=== PATIENT | male | born 1960 | race Caucasian/White ===

== ENCOUNTER 2022-10-26 03:42 | Emergency (ER) | payer MEDICARE ==
[2022-10-26] MEDS ORDERED: ONDANSETRON 4 MG/2 ML (SDV) Z0FRAN IVP ONE (04:00)
[2022-10-26] MEDS ORDERED: fentaNYL INJECTION 100 MCG/2 ML VIAL IVP ONE ×2 (04:00→05:00)
--- NOTE | 2022-10-26 04:01 | ED Upper Extremity ---
General Chief Complaint: Upper Extremity Stated Complaint: FALL/RT ARM PAIN Source: patient Exam Limitations: no limitations History of Present Illness Date Seen by Provider: Oct 26, 2022 Time Seen by Provider: 03:50 Initial Comments Patient is a 62-year-old male who presents to the emergency room with a chief complaint of right arm pain and shoulder pain. He had been drinking some beer last night he states "5 or 6" for his birthday and was going down his trailer steps when he missed a couple of steps and fell onto his right side. He states he felt and heard a "pop". He states he laid on the ground for about 3 hours before he was able to get a hold of his brother. He states he did not hit his head or have loss of consciousness. He denies any other complaints of injuries to the head neck chest abdomen pelvis or other 3 extremities. He does not recall his last tetanus shot. He did have supper last night. He is not currently nauseous. He denies numbness or weakness to the distal right upper extremity. Onset: this morning (about 3-4 hours [employer]) Pain/Injury Location: right shoulder, right arm Method of Injury: fell Modifying Factors: Improves With Immobilization; Worse With Movement Allergies and Home Medications Allergies Coded Allergies: No Known Drug Allergies (Unverified , 10/26/22) Patient Home Medication List Home Medication List Reviewed: Yes Review of Systems Constitutional: see HPI EENTM: no symptoms reported Cardiovascular: no symptoms reported Gastrointestinal: no symptoms reported Genitourinary: no symptoms reported Musculoskeletal: joint pain (right shoulder and upper arm) Skin: no symptoms reported Psychiatric/Neurological: No Symptoms Reported All Other Systems Reviewed Negative Unless Noted: Yes Physical Exam Vital Signs Vital Signs - First Documented 10/26/22 10/26/22 03:45 05:21 Temp 36.0 Pulse 93 Resp 16 B/P (MAP) 149/102 (118) Pulse Ox 99 O2 Delivery Room Air O2 Flow Rate 2.00 Capillary Refill : Height, Weight, BMI Height: '" Weight: lbs. oz. kg; BMI Method: General Appearance: WD/WN, no apparent distress, obese HEENT: PERRL/EOMI Neck: full range of motion Cardiovascular: regular rate, rhythm Respiratory: lungs clear, normal breath sounds, no respiratory distress, no accessory muscle use Gastrointestinal: non tender, soft Shoulder: limited ROM, pain (prox right humerus - swelling TTP), swelling (right shoulder) Elbow/Forearm: normal inspection, non-tender, no evidence of injury Wrist: Yes normal inspection, Yes non-tender, Yes no evidence of injury, Yes normal ROM Hand: non-tender, normal ROM, Right Neurologic/Tendon: normal sensation, normal motor functions Neurologic/Psychiatric: alert, normal mood/affect, oriented x 3 Skin: normal color, other (abrasions to right hand) Progress/Results/Core Measures Results/Orders My Orders Orders - LAINEY ARRIAZA MD Ondansetron Injection (Zofran Injectio (10/26/22 04:00) Fentanyl Injection (Fentanyl Injection (10/26/22 04:00) Ed Iv/Invasive Line Start (10/26/22 03:57) Humerus, Right, 2 Views (10/26/22 03:57) Shoulder, Right, 3 Views (10/26/22 03:57) Dipht/Pertuss(Acell)/Tet Adult (Dipht/Pe (10/26/22 04:15) Fentanyl Injection (Fentanyl Injection (10/26/22 05:00) O2 (10/26/22 05:20) Medications Given in ED Current Medications Medications Dose Ordered Sig/Frida Route Start Time Stop Time Status Last Admin Dose Admin Diphtheria/ Tetanus/Acell Pertussis 0.5 ml ONCE ONCE IM 10/26/22 04:15 10/26/22 04:16 DC 10/26/22 04:08 0.5 ML Fentanyl Citrate 50 mcg ONCE ONCE IVP 10/26/22 04:00 10/26/22 04:01 DC 10/26/22 04:05 50 MCG Fentanyl Citrate 50 mcg ONCE ONCE IVP 10/26/22 05:00 10/26/22 05:01 DC 10/26/22 05:01 50 MCG Ondansetron HCl 4 mg ONCE ONCE IVP 10/26/22 04:00 10/26/22 04:01 DC 10/26/22 04:05 4 MG Vital Signs/I&O 10/26/22 10/26/22 03:45 05:21 Temp 36.0 Pulse 93 Resp 16 B/P (MAP) 149/102 (118) Pulse Ox 99 O2 Delivery Room Air Nasal Cannula O2 Flow Rate 2.00 Diagnostic Imaging Diagonstic Imaging: Xray Comments Right shoulder and right humerus plain x-rays independently reviewed and interp reted by me. The patient has what appears to be a surgical neck fracture of the right proximal humerus that is 100% displaced with the shaft of the humerus dislocated anteriorly and medially Departure Communication (Admissions) Time/Spoke to Consulting Phy: 05:[address] Nevarez; Shoulder immobilizer and pain meds. will see him in clinic tomorrow Impression Primary Impression: Closed fracture of surgical neck of right humerus Qualified Codes: S42.221A - 2-part displaced fracture of surgical neck of right humerus, initial encounter for closed fracture Disposition: HOME, SELF-CARE Condition: Stable Departure-Patient Inst. Decision time for Depature: 05:36 Referrals: AGAPITO NEVAREZ MD Patient Instructions: Shoulder Fracture (DC) Add. Discharge Instructions: Apply an ice pack to the upper portion of your right upper arm. Do this for 20 minutes at a time every 1-2 hours for the next 24 to 48 hours. Take [id number] extra strength Tylenol, 1 tablet (500mg), with a hydrocodone 5 mg tablet every 6 hours as needed for pain. You should be on a daily stool softener while taking hydrocodone. Keep the shoulder sling/immobilizer on until you follow-up with Dr. Nevarez. Please call today for a follow-up appointment tomorrow or early Monday. Return to the emergency department for any new, concerning or emergent complaints. Scripts Hydrocodone/Acetaminophen (Hydrocodone-Acetamin 5-325 mg) 5 Mg-325 Mg Tablet 1 TAB PO Q6H PRN for PAIN-MODERATE (5-7), #20 TAB Prov: LAINEY ARRIAZA MD 10/26/22 Work/School Note: Work Release Form Date Seen in the Emergency Department: Oct 26, 2022 Return to Work: Oct 31, 2022 Copy Copies To 1: AGAPITO NEVAREZ MD, KATHRYN M MD Oct 26, 2022 04:01
[2022-10-26] MEDS ORDERED: Tetanus/Diphtheria/Pertussis (Acell) ADULT Vaccine 0.5 ML IM ONE (04:15)
[2022-10-26] MEDS ORDERED: ACHD5005 PO (05:39)
[2022-10-26] MEDS ORDERED: morphine INJ 4 MG/ML 1 ML (VIAL/SYRINGE) IVP ONE (05:45)
[2022-10-26 05:55] VITALS: BP 161/89
--- NOTE | 2022-10-26 07:35 | Diagnostic Imaging Report ---
EXAMINATION: Right humerus radiograph TECHNIQUE: AP and lateral views of the right humerus obtained. HISTORY: fell onto right shoulder/upper arm COMPARISON: None available. FINDINGS: Acute displaced fracture of the proximal right humerus. No unexpected radiopaque foreign bodies. IMPRESSION: Acute displaced fracture of the proximal right humerus. Dictated by: Dictated on workstation # [id number]
--- NOTE | 2022-10-26 07:35 | Diagnostic Imaging Report ---
EXAMINATION: Right shoulder radiograph TECHNIQUE: AP, Grashey, and Y-view of the right shoulder pain HISTORY: fell onto right shoulder/upper arm COMPARISON: None available. FINDINGS: Acute nondisplaced fracture of the proximal right humerus. Mild degenerative changes of the acromioclavicular joint. No acute findings in the visualized chest. IMPRESSION: Acute displaced fracture of the proximal right humerus. Dictated by: Dictated on workstation # [id number]
== END 2022-10-26 05:55 | disposition home or self-care (01) ==
LOC: EDUNIT# 03:42 → ER 03:44
DX: S42.221A 2-part displaced fracture of surgical neck of right humerus, initial encounter for closed fracture (principal); S60.511A Abrasion of right hand, initial encounter; Z23 Encounter for immunization; Z28.310 Unvaccinated for COVID-19; W10.9XXA Fall (on) (from) unspecified stairs and steps, initial encounter; Y93.01 Activity, walking, marching and hiking
CPT/HCPCS: 73030; 73060; 99284; L3650; 90715

== ENCOUNTER 2023-01-09 12:59 | Outpatient (RCR) | payer MEDICARE ==
[~2023-01-09 12:59] MED LIST: ACHD5005 PO
== END 2023-01-10 | disposition home or self-care (01) ==
PROVIDERS: ATTEND Orthopaedic Surgery
DX: Z98.890 Other specified postprocedural states (principal)

== ENCOUNTER 2023-01-25 13:34 | Emergency (ER) | payer MEDICARE ==
[~2023-01-25] VITALS: Ht 169 cm; Wt 108.0 kg
--- NOTE | 2023-01-25 14:58 | Diagnostic Imaging Report ---
CHEST 1 VIEW, AP/PA ONLY INDICATION: Dyspnea. COMPARISON: None available. FINDINGS: Cardiac silhouette is enlarged. Ill-defined opacities are present in the bilateral perihilar region. No pleural effusion or pneumothorax. IMPRESSION: 1. Cardiomegaly with potential mild pulmonary edema. Given patient size, some of the apparent pulmonary opacities could be due to summation shadow of patient's soft tissues of the chest. Dictated by: Dictated on workstation # [id number]
--- NOTE | 2023-01-25 15:11 | ED General ---
General Chief Complaint: Cardiac/General Problems Stated Complaint: HIGH BLOOD PRESSURE Nursing Triage Note: PT AT OUTPT THERAPY AND BP HIGH Source of Information: Patient Exam Limitations: No Limitations History of Present Illness Date Seen by Provider: Jan 25, 2023 Time Seen by Provider: 14:05 Initial Comments 62-year-old male presents from rehab facility for hypertension. He states he was pushing himself harder than normal while rehabbing after a hip surgery and got winded. He sat down and he was noted to be significantly hypertensive which prompted them to recommend he get evaluated in the emergency department. He states he feels back to normal at present. All other systems reviewed and negative except documented per HPI. Voice recognition software was used to help create this chart Allergies and Home Medications Allergies Coded Allergies: No Known Drug Allergies (Unverified , 10/26/22) Patient Home Medication List Home Medication List Reviewed: Yes Hydrocodone/Acetaminophen (Hydrocodone-Acetamin 5-325 mg) 5 Mg-325 Mg Tablet, 1 TAB PO Q6H PRN for PAIN-MODERATE (5-7) Prescribed by: LAINEY ARRIAZA on 10/26/22 0539 Review of Systems Review of Systems Constitutional: see HPI Past Ryozlqr-Dqenzh-Ivmsnr Hx Patient Social History Tobacco Use?: No Immunizations Up To Date Influenza Vaccine Up-to-Date: No; Not Current Physical Exam Vital Signs Vital Signs - First Documented 01/25/23 13:43 Pulse 108 Resp 22 Pulse Ox 94 O2 Delivery Room Air Capillary Refill : Less Than 3 Seconds Height, Weight, BMI Height: '" Weight: lbs. oz. kg; 37.00 BMI Method: General Appearance: No Apparent Distress, WD/WN HEENT: Normal ENT Inspection, Pharynx Normal Neck: Normal Inspection, Non Tender, Supple Respiratory: Chest Non Tender, Lungs Clear, Normal Breath Sounds, No Accessory Muscle Use, No Respiratory Distress Cardiovascular: Regular Rate, Rhythm, No Murmur, Normal Peripheral Pulses Gastrointestinal: Normal Bowel Sounds, No Organomegaly, Non Tender, Soft Extremity: Normal Capillary Refill, Swelling (Trace pretibial edema bilateral) Neurologic/Psychiatric: Alert, Oriented x3, No Motor/Sensory Deficits Skin: Normal Color, Warm/Dry Progress/Results/Core Measures Suspected Sepsis Recent Fever Within 48 Hours: No SIRS Temperature: Pulse: 106 Respiratory Rate: 22 Blood Pressure 197 /109 Mean: 138 Results/Orders My Orders Orders - RAFAL,AMARA L DO Ekg Tracing (01/25/23 14:20) Chest 1 View, Ap/Pa Only (01/25/23 14:20) Vital Signs/I&O 01/25/23 01/25/23 01/25/23 13:43 13:48 13:48 Temp 37.0 Pulse 108 106 Resp 22 22 B/P (MAP) 197/109 197/107 (137) Pulse Ox 94 94 O2 Delivery Room Air Room Air Capillary Refill : Less Than 3 Seconds Blood Pressure Mean: 138 ECG Comment Sinus tachycardia 103 bpm. Normal intervals. Normal axis. No ST or T wave abnormalities. No ectopy. No STEMI. Departure Communication (Admissions) Patient is hemodynamically stable, asymptomatic at present. Given his shortness of breath time presentation went and got an EKG, chest x-ray. These are negative on my independent interpretation. His oxygen saturation stable and his vital signs are otherwise reassuring. He is discharged home in stable condition. Impression Primary Impression: Hypertension Qualified Codes: I10 - Essential (primary) hypertension Disposition: HOME, SELF-CARE Condition: Stable Departure-Patient Inst. Referrals: TANIA DEXTER MD (PCP/Family) Primary Care Physician Patient Instructions: High Blood Pressure (DC) Add. Discharge Instructions: Please keep a log of your blood pressures twice a day over the next several days and call to schedule follow-up appoint with your primary doctor for further discussion of blood pressure management. Return to the emergency department for any severe concerns. All discharge instructions reviewed with patient and/or family. Voiced understanding. AMARA LYLES DO Jan 25, 2023 15:11
[2023-01-25 15:23] VITALS: BP 178/104
== END 2023-01-25 15:23 | disposition home or self-care (01) ==
LOC: EDUNIT# 13:34 → ER 13:36
DX: I10 Essential (primary) hypertension (principal)
CPT/HCPCS: 71045; 93005

== ENCOUNTER → 2023-01-25 14:15 | Outpatient (RCR) | payer MEDICARE | END | disposition home or self-care (01) | PROVIDERS: ATTEND Orthopaedic Surgery | DX: Z98.890 Other specified postprocedural states (principal) ==

== ENCOUNTER 2023-01-25 23:15 | Emergency (ER) | payer MEDICARE ==
[2023-01-25] MEDS ORDERED: EPINEPHrine 0.1 MG/ML 10 ML EMERGENCY SYR INJ ONE (23:18)
--- NOTE | 2023-01-26 01:06 | ED CPR ---
HPI-CPR General Chief Complaint: Code Blue Stated Complaint: CODE BLUE Source of Information: EMS, Family, Old Records Exam Limitations: Other (unresponsive) History of Present Illness Date Seen by Provider: Jan 25, 2023 Time Seen by Provider: 23:16 Initial Comments This 62-year-old gentleman presents to the emergency room via EMS with CPR in progress. He contacted his brother this evening complaining of shortness of breath. His brother activated EMS. Just prior to EMSs arrival, the patient became unresponsive, quit breathing, and lost pulse. CPR was immediately initiated. During CPR patient began to have copious bleeding from the mouth. He was bleeding faster than they could clear his oropharynx with suctioning. They were not able to intubate him because of the obstructing view. An i-gel device was placed instead. CPR continued and patient remained pulseless. EMS noted pulse could not be palpated even during CPR. Rhythm on the monitor was PEA. In total, 5 doses of epinephrine 1 mg were administered during EMS resuscitation efforts. He also received approximately 1500 mL in fluid boluses. Tranexemic acid was administered due to the hemorrhaging. Mr. Bob had been seen in this ER earlier in the day for hypertension and SOA. He had been at physical therapy when he began feeling "winded". His symptoms resolved and BP was improving per notes of that visit. He was ultimately discharged. He have very little known health history. He suffered a shoulder fracture in October which was surgically repaired by Dr. Dexter. This surgery prompted the PT. He did not have a primary care provider. He had history of significant daily alcohol consumption prior to the surgery. Family states he stopped drinking alcohol after the surgery. EMS estimated he lost 5781-9513 in fluid through the mouth, most of it blood. This was presumed to be from GI bleed. FSBS was 153. Allergies and Home Medications Allergies Coded Allergies: No Known Drug Allergies (Unverified , 10/26/22) Patient Home Medication List Home Medication List Reviewed: Yes Hydrocodone/Acetaminophen (Hydrocodone-Acetamin 5-325 mg) 5 Mg-325 Mg Tablet, 1 TAB PO Q6H PRN for PAIN-MODERATE (5-7) Prescribed by: LAINEY ARRIAZA on 10/26/22 0539 Review of Systems Review of Systems Constitutional: see HPI EENTM: No Symptoms Reported Respiratory: See HPI Cardiovascular: See HPI Gastrointestinal: See HPI Genitourinary: No Symptoms Reported Musculoskeletal: no symptoms reported Skin: no symptoms reported Psychiatric/Neurological: No Symptoms Reported Endocrine: No Symptoms Reported Hematologic/Lymphatic: No Symptoms Reported Past Vcrhlyb-Vccozo-Jjjwfe Hx Patient Social History Tobacco Use?: No Smokeless Tobacco Frequency: Current Everyday User Use of E-Cig and/or Vaping dev: No Substance use?: No Alcohol Use?: Yes (Daily drinker until October 2022) Past Medical History Surgeries: Yes Abdominal (hernia), Orthopedic (Right shoulder fracture) Respiratory: Yes Sleep Apnea Currently Using CPAP: No (declined) Cardiac: Yes Hypertension Neurological: No Genitourinary: No Gastrointestinal: No Musculoskeletal: No Endocrine: No HEENT: No Cancer: No Psychosocial: No Physical Exam Vital Signs Vital Signs - First Documented 01/25/23 23:16 Pulse 0 B/P (MAP) 0/0 (0) O2 Delivery Ambu Bag Capillary Refill : Height, Weight, BMI Height: '" Weight: lbs. oz. kg; 37.00 BMI Method: General Appearance: WD/WN, Obese, Other (unresponsive) HEENT: Normal ENT Inspection Neck: Normal Inspection; No JVD Respiratory: Other (i-Gel. Positive breath sounds with bag ventilation equal bilaterally) Cardiovascular: Other (pulseless even with chest compressions) Gastrointestinal: Distended Neurologic/Psychiatric: Other (unresponsive) Skin: Cool, Pallor Progress/Results/Core Measures Results/Orders Vital Signs/I&O 01/25/23 01/25/23 23:16 23:16 Pulse 0 B/P (MAP) 0/0 (0) O2 Delivery Ambu Bag 01/25/23 23:59 Intake Total 500 ml Balance 500 ml Critical Care Note Critical Care Start Time: 23:16 Stop Time: 23:24 Total Time (minutes) 8 Date of : Jan 25, 2023 Time of : 23:24 Progress Patient had received 5 rounds of epinephrine 1 mg IO prior to arrival. He was finishing a 1500 mL bolus. TXA bolus had been administered. These interventions yielded not response. He remained pulseless even during chest compressions. CPR was continued upon arrival. Respiratory support was provided via bag ventilation through an i-gel. Breath sounds were appreciated bilaterally on auscultation. The respiratory therapy team suctioned a scant amount of blood from the i-gel. Another dose of epinephrine 1 mg was administered IO at 2320. Pulse check at 2324 revealed no rhythm and no pulse. Patient had been coded for approximately 1 hour without ROSC by that time. Further interventions were felt to be futile. The decision was made to terminate efforts with no objection by any team members. Time of was pro nounced at 2324. I discussed the situation with family. Pastoral care was called to assist family. I suspect patient had a massive hemorrhage leading to hypovolemic shock and cardiac arrest as significant blood loss was noted by EMS on scene and patient never achieved a pulse chest compressions after fluid resuscitation. I discussed the case with Dr. BORRERO, equipment manager. He deferred the work-up of the case to Andrey Smith. Autopsy was not recommended. Departure Impression Primary Impression: Cardiac arrest Additional Impression: Hemorrhage Disposition: 20 Condition: Departure-Patient Inst. Referrals: NO,LOCAL PHYSICIAN (PCP) Primary Care Physician TANIA DEXTER MD (Family) Primary Care Physician KRISTIE MCCOY MD Jan 26, 2023 01:05
[2023-01-26 04:19] VITALS: BP 0/0
== END 2023-01-26 04:19 | disposition expired ==
LOC: EDUNIT# 23:15 → ER 23:17
DX: I46.9 Cardiac arrest, cause unspecified (principal); R04.1 Hemorrhage from throat; F17.200 Nicotine dependence, unspecified, uncomplicated
CPT/HCPCS: 36680; 99291